=== PATIENT | female | born 1980 | race African-American/Black ===

== ENCOUNTER 2019-10-20 02:11 | Emergency (ER) | payer OTHER ==
[~2019-10-20] VITALS: Ht 162.6 cm; Wt 96.2 kg
[2019-10-20 02:30] VITALS: BP 143/77
[2019-10-20] MEDS ORDERED: PENICILLIN G BENZATHINE 2.4 MMU/4 ML ML IM ONE ×3 (03:00→03:30)
[2019-10-20] MEDS ORDERED: DEXAMETHASONE SOD PHOSPHATE 10 MG/ML VIAL IV ONE (03:00)
[2019-10-20] MEDS ORDERED: DEXAMETHASONE SOD PHOSPHATE 10 MG/ML VIAL ONE (03:04)
== END 2019-10-20 03:15 | disposition home or self-care (01) ==
LOC: EDBD 02:13 → ER 02:13
DX: J03.90 Acute tonsillitis, unspecified (principal)
CPT/HCPCS: 96372; 96374; 99284; J0558; J1100